=== PATIENT | female | born 1995 | race Caucasian/White ===

== ENCOUNTER → 2020-10-27 | Outpatient (CLI) | payer OTHER ==
--- NOTE | 2020-10-28 04:42 | REP ---
INDICATION: VEIN THROMBOSIS/RIGHT LEG COMPARISON: None. TECHNIQUE: Harrison scale and color Doppler evaluation using linear high frequency transducer. FINDINGS: Ultrasound examination of the right lower extremity deep venous structures from the common femoral vein to the popliteal vein demonstrates normal compressibility flow and wave patterns in response to respiration and augmentation. There is no evidence for deep venous thrombosis. Further evaluation demonstrates no obvious superficial venous thrombosis or thrombophlebitis. IMPRESSION: No evidence for deep venous thrombosis. Normal examination. <Electronically signed by Dustin Gross > 10/28/20 0439
== END ==
LOC: M WHC 14:59
PROVIDERS: ATTEND Nurse Practitioner Family
DX: I82.890 Acute embolism and thrombosis of other specified veins (principal)

== ENCOUNTER → 2020-12-28 | Outpatient (REF) | payer OTHER ==
[~2020-12-28] MED LIST: TRI-TAB PO
[2020-12-30 14:39] LABS: CHLAMYDIA DNA AMPLIFICATION NEGATIVE (NEGATIVE); GC DNA AMPLIFICATION NEGATIVE (NEGATIVE)
== END ==
LOC: M SFHCWAGY 16:59
PROVIDERS: ATTEND Nurse Practitioner Women's Health
DX: Z11.3 Encounter for screening for infections with a predominantly sexual mode of transmission (principal)

== ENCOUNTER → 2021-10-31 | Outpatient (CLI) | payer OTHER | LOC: M WUC 12:00 | PROVIDERS: ATTEND Student in an Organized Health Care Education/Training Program | DX: R07.89 Other chest pain (principal) ==